=== PATIENT | female | born 1975 | race Caucasian/White ===

== ENCOUNTER 2020-03-24 21:38 | Observation (INO) | payer OTHER ==
[~2020-03-24] VITALS: Ht 175.3 cm; Wt 77.4 kg
[2020-03-24 22:07] LABS: BASOPHILS ABSOLUTE AUTO 0.08 K/mm3 (0.00-0.23); BASOPHILS PERCENT AUTO 1 % (0-2); EOSINOPHILS ABSOLUTE AUTO 0.11 K/mm3 (0.00-0.68); EOSINOPHILS PERCENT AUTO 2 % (0-6); Hemoglobin 15.4 g/dL (11.5-16.0); IMMATURE GRAN ABSOLUTE AUTO 0.02 K/mm3 (0.00-0.10); IMMATURE GRAN PERCENT AUTO 0 % (0-1); LYMPHOCYTES ABSOLUTE AUTO 3.36 K/mm3 (0.84-5.20); LYMPHOCYTES PERCENT AUTO 49 % (21-46); MONOCYTES PERCENT AUTO 6 % (4-13); Mean Corpuscular HGB 30.9 pg (26.0-34.0); Mean Corpuscular HGB Conc 32.8 g/dL (31.5-36.5); Mean Corpuscular Volume 94 fL (80-100); Mean Platelet Volume 9.6 fL (9.1-12.4); NEUTROPHILS ABSOLUTE AUTO 2.96 K/mm3 (1.96-9.15); NEUTROPHILS PERCENT AUTO 43 % (41-73); Platelet Count 293 K/mm3 (150-400); RDW Coefficient Variation 14.6 % (11.7-14.2); RDW Standard Deviation 50.4 fL (35.1-46.3); Red Blood Cell Count 4.99 M/mm3 (3.80-5.20); White Blood Cell Count 6.93 K/mm3 (4.00-11.30)
[2020-03-24 22:35] LABS: Alanine Aminotransfer (ALT/SGP 99 U/L (12-78); Albumin, Blood 3.7 g/dL (3.4-5.0); Alk Phos 71 U/L (50-136); Anion Gap 7 mmol/L (6-16); Aspartate Aminotrans (AST/SGOT 47 U/L (12-37); Bilirubin, Total 0.2 mg/dL (0.1-1.0); Blood Urea Nitrogen 9 mg/dL (8-24); Bun/Creatinine Ratio 14.9 (12.0-20.0); CO2, Blood 24 mmol/L (21-32); Calcium, Blood 8.2 mg/dL (8.5-10.1); Chloride, Blood 113 mmol/L (98-108); Ethanol (Alcohol), Blood, Med 278 mg/dL; Globulin, Blood 3.6 g/dL (2.2-4.0); Glomerular Filtration Rate >60 (60-); Glucose, Blood 90 mg/dL (70-99); Potassium, Blood 3.8 mmol/L (3.5-5.5); Salicylate 4.3 mg/dL (2.8-20.0); Sodium, Blood 144 mmol/L (136-145); Thyroxine (T4) 10.3 ug/dL (4.8-13.9); Total Protein, Blood 7.3 g/dL (6.4-8.2)
[2020-03-24 22:38] LABS: Acetaminophen, Random <2.0 ug/mL (10.0-30.0)
--- NOTE | 2020-03-25 01:00 | NUR ---
PT ARRIVED FROM ED VIA WC; SELF TRANSFERED TO BED; PT SEEMS DISGRUNTLED, STATING SHE DOES NOT WANT TO STAY IN THE HOSPITAL; A&O X4; DENIES CHEST PAIN; VSS; NSR ON MONITOR; O2 SATS >93 ON RA; ROOM MITIGATED AND SEIZURE PADS IN PLACE; 1:1 OBSERVATION.
--- NOTE | 2020-03-25 02:00 | NUR ---
SPOKE W/ POISON CONTROL ON PHONE, WHOM CALLED FOR PT UPDATE AND VERIFY LAB VALUES; PT CURRENTLY SLEEPING, NO DISTRESS NOTED
[2020-03-25 04:11] LABS: BASOPHILS ABSOLUTE AUTO 0.06 K/mm3 (0.00-0.23); BASOPHILS PERCENT AUTO 1 % (0-2); EOSINOPHILS ABSOLUTE AUTO 0.11 K/mm3 (0.00-0.68); EOSINOPHILS PERCENT AUTO 2 % (0-6); Hematocrit 40.7 % (33.0-51.0); Hemoglobin 13.2 g/dL (11.5-16.0); IMMATURE GRAN ABSOLUTE AUTO 0.02 K/mm3 (0.00-0.10); IMMATURE GRAN PERCENT AUTO 0 % (0-1); LYMPHOCYTES ABSOLUTE AUTO 3.21 K/mm3 (0.84-5.20); LYMPHOCYTES PERCENT AUTO 54 % (21-46); MONOCYTES ABSOLUTE AUTO 0.38 K/mm3 (0.16-1.47); MONOCYTES PERCENT AUTO 6 % (4-13); Mean Corpuscular HGB 30.8 pg (26.0-34.0); Mean Corpuscular HGB Conc 32.4 g/dL (31.5-36.5); Mean Corpuscular Volume 95 fL (80-100); Mean Platelet Volume 9.9 fL (9.1-12.4); NEUTROPHILS ABSOLUTE AUTO 2.21 K/mm3 (1.96-9.15); NEUTROPHILS PERCENT AUTO 37 % (41-73); Platelet Count 243 K/mm3 (150-400); RDW Coefficient Variation 14.8 % (11.7-14.2); RDW Standard Deviation 51.7 fL (35.1-46.3); Red Blood Cell Count 4.28 M/mm3 (3.80-5.20); White Blood Cell Count 5.99 K/mm3 (4.00-11.30)
[2020-03-25 04:29] LABS: Alanine Aminotransfer (ALT/SGP 81 U/L (12-78); Albumin, Blood 3.1 g/dL (3.4-5.0); Albumin/Globulin Ratio 1.1 (0.8-1.8); Alk Phos 60 U/L (50-136); Anion Gap 6 mmol/L (6-16); Aspartate Aminotrans (AST/SGOT 40 U/L (12-37); Bilirubin, Total 0.2 mg/dL (0.1-1.0); Blood Urea Nitrogen 9 mg/dL (8-24); Bun/Creatinine Ratio 15.9 (12.0-20.0); CO2, Blood 23 mmol/L (21-32); Calcium, Blood 7.4 mg/dL (8.5-10.1); Chloride, Blood 115 mmol/L (98-108); Creatinine, Blood 0.57 mg/dL (0.40-1.00); Globulin, Blood 2.9 g/dL (2.2-4.0); Glomerular Filtration Rate >60 (60-); Glucose, Blood 78 mg/dL (70-99); Potassium, Blood 3.7 mmol/L (3.5-5.5); Sodium, Blood 144 mmol/L (136-145)
[2020-03-25 04:33] LABS: Acetaminophen, Random 2.4 ug/mL (10.0-30.0); Salicylate 4.2 mg/dL (2.8-20.0)
--- NOTE | 2020-03-25 06:18 | NUR ---
SHIFT SUMMARY PT A&O X4; ANSWERS APPROPRIATELY; MAKES NEEDS KNOWN; DENIES CHEST PAIN, VSS, NSR ON MONITOR W/ HR 68; O2 SATS >93 ON RA; DENIES SOB; PT UP TO BATHROOM, NO GAIT DISTRUBANCES NOTED; NEURO CHECKS STABLE, NO ACUTE CHANGES; PUPILS EQUAL / REACTIVE; GRASPS EQUALLY STRONG; ARMS HELD EQUAL OUT IN FRONT, FLEXES FEET APPROPRIATELY AND FOLLOWS DIRECTIONS; UA SPECIMEN SENT TO LAB THIS AM; 1:1 OBSERVATION; PT REQUESTED TO CALL SPOUSE, THIS RN CALLED SPOUSE TO UPDATE AND TO NOTIFY OF VISITING HOURS; PT SLEPT SEVERAL HOURS; CURRENTLY BECOMING MORE AGGITATED SHE STATES SHE HAS A "VERY IMPORTANT MEETING THIS MORNING"; WILL CONTINUE TO MONITOR CLOSELY UNTIL HAND OFF TO DAY SHIFT RN.
[2020-03-25 06:39] LABS: Source, Urine Clean Catch
[2020-03-25 07:04] LABS: Bilirubin, Urine Neg (Neg); Blood, Urine 1+ (Neg); Glucose Qualitative, Urine Neg (Neg); Ketones, Urine 1+ (Neg); Leukocyte Esterase, Urine Neg (Neg); Nitrite, Urine Neg (Neg); Protein, Urine Neg (Neg); Specific Gravity, Urine 1.025 (1.003-1.022); Urobilinogen, Urine NORM (Normal)
[2020-03-25 07:22] LABS: U Amphetamine Screen Not Detected; U Barbituate Screen Not Detected; U Benzodiazapine Screen Not Detected; U Buprenorphine Screen Not Detected; U Cannabinoids Screen Not Detected; U Cocaine Screen Not Detected; U Methadone Screen Not Detected; U Methamphetamine Screen Not Detected; U Opiates Screen Not Detected; U Oxycodone Screen Not Detected; U Phencyclidine Screen Not Detected; U Propoxyphene Screen Not Detected
[2020-03-25 07:24] LABS: Appearance, Urine Hazy (Clear); Color, Urine Yellow (P-Yellow)
[2020-03-25 07:25] LABS: Bacteria Rare /hpf; Mucus Light (0-Heavy); Red Blood Cells, Urine 0-2 /hpf (0-2); Squamous Epithelial Cells Mod /hpf (Few); White Blood Cells, Urine Not Seen /hpf (0-5)
--- NOTE | 2020-03-25 07:57 | NUR ---
AM NOTE... ASSUMED CARE OF PT APROX 0700, PT IS A&Ox4 AND IND THE ROOM. PT IS ON 1:1 FOR ATTEMPTED SUICIDE WHILE DRINKING A 5TH OF FIRE BALL WHISKEY AND TAKING PILLS. PER PT SHE THREW UP THE PILLS APROX 20-30 AFTER TAKING THEM, HER UTOX SHOWED SHE WAS NEGATIVE FOR EVERYTHING. PT IS IN NSR WITH QTc OF .454, PT DENIES CHEST PAIN/PRESSURE. PT'S BP STABLE AT 147/76. PT IS ON RA, L/S CLEAR T/O. BT PRESENT AND HYPERACTIVE, PT HAS HAD AN EPISODE OF N/V WITH APROX 100MLS OF EMISIS. NO EDEMA NOTED ON ASSESSMENT. PT DENIES ANY CURRENT SI FEELINGS OR DESIRES. PT STATES THAT SHE REGRETS HER ATTEMPT AND "IT WAS STUPID AND I KNOW IT, I KNOW THE VALUE OF MY LIFE, IM JUST IN A BAD PLACE RIGHT NOW AND THE ALCOHOL DIDN'T HELP." PT IS REQUESTING "REGULAR FOOD" AT THIS TIME, CALLED PROVIDER AND OBTAINED ORDER FOR REGULAR DIET. WILL CONTINUE TO MONITOR.
--- NOTE | 2020-03-25 09:33 | NUR ---
PT UPDATE... PT IS BECOMING MORE ANXIOUS ABOUT LEAVING THAN SHE WAS AT THE START OF THIS SHIFT. PT KEEPS ASKING THIS RN AND OTHER STAFF ABOUT WHEN THE DOCTOR WILL BE HERE BECAUSE SHE HAS "STUFF TO DO AT HOME." PT ALSO ASKED IF SHE COULD TAKE OFF HER TELE MONITOR AND HER IV BECAUSE THEY WERE BUGGING HER. PT EDUCATED ON WHAT THE MONITOR AND IV WERE FOR AND SHE AGREED THAT SHE NEEDED THEM. PT CONTINUES TO DENY ANY THOUGHTS,IDEAS OR PLANS OF SELF HARM. WILL CONTINUE TO MONITOR.
--- NOTE | 2020-03-25 11:44 | NUR ---
Suicide Safety plan interview and plan completed at 10am today ICU15. present during interview. Pt alert, cooperative, well groomed and well spoken. 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 She self reports as unable to stop drinking hard liquor once she starts. She reports not sleeping for 10 days due to stress re: brief separation from and living separate;ly. She took the day off from work, and planned to drink, wanting to sleep. She purchased 2 bottles of Fireball and took pills to try and sleep. She induced vomiting herself, as she was not trying to kill herself. Pill fragments observed by EMS in ED physician notes. She called a friend to talk, and the friend called pt son who called EMS. She is future oriented and "a lot to live for". Pt has 16 y/o daughter and 19 y/o so that lives with them. She attended rehab at [facility] 5 years ago. She had rellapsed while going through a difficult divorce. Suicide attempt at age 17 by pill OD. She was medically hospitalized. Reports her brother had and was "shipped to live elsewhere" at the time. No further gestures or attempts. Pt has insight into her inability to control hard liquor once she starts. Explained involuntary process as she was concrned of meaning. Pt apologized, as she has a gag response when she becomes emotional,. She did have this response when discussing how she handles stress--which is work more. Recommend a counselor or her to explore alternate coping skills. Pt is not suicidal. Dir Ameya. BH
[2020-03-25] MEDS ORDERED: Nicoderm Cq1 EAC1 TOP (15:02)
--- NOTE | 2020-03-25 15:15 | NUR ---
PT D/C... PT D/C HOME WITH , PT SPOKE WITH MENTAL HEALTH PROVIDER AND THE 2MD HOLD WAS LIFTED. PT'S IV REMOVED WNL. ALL OF PT'S BELONGINGS WERE SENT HOME WITH HER . PT'S AT THE BEDSIDE FOR D/C INSTRUCTIONS/EDUCATION. PT'S ONLY NEW MEDICATION WAS NICOTINE PATCHES WHICH SHE REFUSED AND DID NOT WANT CALLED IN FOR HER. SAFETY PLAN WAS DONE AND IN THE CHART, PT AGREES TO FOLLOW IT. PT REFUSED W/C ESORT TO THE FRONT DOORS.
== END 2020-03-25 15:15 | disposition home or self-care (01) ==
LOC: ER 21:38 → ICUW 21:39
PROVIDERS: Emergency Medicine; Nurse Practitioner Acute Care; ADMIT Internal Medicine
DX: T43.212A Poisoning by selective serotonin and norepinephrine reuptake inhibitors, intentional self-harm, initial encounter (principal); T40.2X2A Poisoning by other opioids, intentional self-harm, initial encounter; F17.200 Nicotine dependence, unspecified, uncomplicated; F10.10 Alcohol abuse, uncomplicated; F10.129 Alcohol abuse with intoxication, unspecified; Y90.9 Presence of alcohol in blood, level not specified; Z71.6 Tobacco abuse counseling
CPT/HCPCS: 36415; 80053; 81001; 81025; 84436; 84443; 85025; 93005; 93010; 96360; 99285-25; G0378; G0480; J2405; J7030

== ENCOUNTER 2020-05-19 07:36 | Emergency (ER) | payer OTHER ==
[~2020-05-19] VITALS: Ht 177.8 cm; Wt 78.3 kg
[~2020-05-19 07:36] MED LIST: Nicoderm Cq1 EAC1 TOP
[2020-05-19 09:40] LABS: BASOPHILS ABSOLUTE AUTO 0.09 K/mm3 (0.00-0.23); BASOPHILS PERCENT AUTO 2 % (0-2); EOSINOPHILS ABSOLUTE AUTO 0.02 K/mm3 (0.00-0.68); EOSINOPHILS PERCENT AUTO 0 % (0-6); Hematocrit 45.1 % (33.0-51.0); Hemoglobin 14.8 g/dL (11.5-16.0); IMMATURE GRAN ABSOLUTE AUTO 0.02 K/mm3 (0.00-0.10); IMMATURE GRAN PERCENT AUTO 0 % (0-1); LYMPHOCYTES ABSOLUTE AUTO 1.78 K/mm3 (0.84-5.20); LYMPHOCYTES PERCENT AUTO 29 % (21-46); MONOCYTES ABSOLUTE AUTO 0.51 K/mm3 (0.16-1.47); MONOCYTES PERCENT AUTO 8 % (4-13); Mean Corpuscular HGB 30.3 pg (26.0-34.0); Mean Corpuscular HGB Conc 32.8 g/dL (31.5-36.5); Mean Corpuscular Volume 92 fL (80-100); Mean Platelet Volume 10.3 fL (9.1-12.4); NEUTROPHILS ABSOLUTE AUTO 3.65 K/mm3 (1.96-9.15); NEUTROPHILS PERCENT AUTO 60 % (41-73); Platelet Count 334 K/mm3 (150-400); RDW Coefficient Variation 14.4 % (11.7-14.2); RDW Standard Deviation 49.2 fL (35.1-46.3); Red Blood Cell Count 4.88 M/mm3 (3.80-5.20); White Blood Cell Count 6.07 K/mm3 (4.00-11.30)
[2020-05-19 10:00] LABS: Alanine Aminotransfer (ALT/SGP 39 U/L (12-78); Albumin, Blood 3.8 g/dL (3.4-5.0); Albumin/Globulin Ratio 1.1 (0.8-1.8); Alk Phos 84 U/L (50-136); Anion Gap 6 mmol/L (6-16); Aspartate Aminotrans (AST/SGOT 35 U/L (12-37); Bilirubin, Total 0.7 mg/dL (0.1-1.0); Blood Urea Nitrogen 10 mg/dL (8-24); Bun/Creatinine Ratio 17.8 (12.0-20.0); CO2, Blood 28 mmol/L (21-32); Calcium, Blood 9.1 mg/dL (8.5-10.1); Chloride, Blood 107 mmol/L (98-108); Creatinine, Blood 0.56 mg/dL (0.40-1.00); Globulin, Blood 3.5 g/dL (2.2-4.0); Glomerular Filtration Rate >60 (60-); Glucose, Blood 110 mg/dL (70-99); Potassium, Blood 3.7 mmol/L (3.5-5.5); Sodium, Blood 141 mmol/L (136-145); Total Protein, Blood 7.3 g/dL (6.4-8.2)
== END 2020-05-19 11:06 | disposition home or self-care (01) ==
LOC: ER 07:36
PROVIDERS: Physician Assistant
DX: N94.6 Dysmenorrhea, unspecified (principal); F17.200 Nicotine dependence, unspecified, uncomplicated; Z91.013 Allergy to seafood
CPT/HCPCS: 36415; 76830; 76856; 80053; 84703; 85025; 99284-25; J7030

== ENCOUNTER 2020-05-31 20:57 | Emergency (ER) | payer OTHER ==
[~2020-05-31] VITALS: Ht 180.3 cm; Wt 78.2 kg
[2020-05-31] MEDS ORDERED: MEDR10 PO (21:05)
[2020-05-31 21:32] LABS: BASOPHILS PERCENT AUTO 2 % (0-2); EOSINOPHILS ABSOLUTE AUTO 0.04 K/mm3 (0.00-0.68); EOSINOPHILS PERCENT AUTO 1 % (0-6); Hematocrit 44.8 % (33.0-51.0); Hemoglobin 14.7 g/dL (11.5-16.0); IMMATURE GRAN ABSOLUTE AUTO 0.02 K/mm3 (0.00-0.10); IMMATURE GRAN PERCENT AUTO 0 % (0-1); LYMPHOCYTES ABSOLUTE AUTO 2.97 K/mm3 (0.84-5.20); LYMPHOCYTES PERCENT AUTO 43 % (21-46); MONOCYTES ABSOLUTE AUTO 0.43 K/mm3 (0.16-1.47); MONOCYTES PERCENT AUTO 6 % (4-13); Mean Corpuscular HGB 30.4 pg (26.0-34.0); Mean Corpuscular HGB Conc 32.8 g/dL (31.5-36.5); Mean Corpuscular Volume 93 fL (80-100); Mean Platelet Volume 9.2 fL (9.1-12.4); NEUTROPHILS ABSOLUTE AUTO 3.31 K/mm3 (1.96-9.15); NEUTROPHILS PERCENT AUTO 48 % (41-73); Platelet Count 353 K/mm3 (150-400); RDW Coefficient Variation 14.5 % (11.7-14.2); RDW Standard Deviation 49.5 fL (35.1-46.3); Red Blood Cell Count 4.84 M/mm3 (3.80-5.20); White Blood Cell Count 6.87 K/mm3 (4.00-11.30)
[2020-05-31 21:49] LABS: Alanine Aminotransfer (ALT/SGP 46 U/L (12-78); Albumin, Blood 3.7 g/dL (3.4-5.0); Alk Phos 84 U/L (50-136); Anion Gap 8 mmol/L (6-16); Aspartate Aminotrans (AST/SGOT 57 U/L (12-37); Bilirubin, Total 0.3 mg/dL (0.1-1.0); Blood Urea Nitrogen 15 mg/dL (8-24); Bun/Creatinine Ratio 23.1 (12.0-20.0); CO2, Blood 24 mmol/L (21-32); Calcium, Blood 8.5 mg/dL (8.5-10.1); Chloride, Blood 109 mmol/L (98-108); Creatinine, Blood 0.65 mg/dL (0.40-1.00); Globulin, Blood 3.6 g/dL (2.2-4.0); Glomerular Filtration Rate >60 (60-); Glucose, Blood 107 mg/dL (70-99); Potassium, Blood 3.4 mmol/L (3.5-5.5); Sodium, Blood 141 mmol/L (136-145); Total Protein, Blood 7.3 g/dL (6.4-8.2)
[2020-06-01] MEDS ORDERED: CHLO25 PO (13:47)
[2020-06-01] MEDS ORDERED: ONDA4ODT MM (13:48)
[2020-06-01] MEDS ORDERED: Macrobid 100 M100 MG PO (18:50)
== END 2020-05-31 22:30 | disposition home or self-care (01) ==
LOC: ER 20:57
PROVIDERS: Physician Assistant
DX: F10.20 Alcohol dependence, uncomplicated (principal); F17.200 Nicotine dependence, unspecified, uncomplicated; Z91.013 Allergy to seafood; Z79.3 Long term (current) use of hormonal contraceptives
CPT/HCPCS: 36415; 80053; 83690; 85025; 96361; 96374; 99284-25; G0480; J2405; J7030

== ENCOUNTER 2020-06-01 09:44 | Emergency (ER) | payer OTHER ==
[~2020-06-01] VITALS: Ht 177.8 cm; Wt 78.9 kg
[~2020-06-01 09:44] MED LIST changes: +MEDR10 PO
[2020-06-01 12:19] LABS: BASOPHILS ABSOLUTE AUTO 0.09 K/mm3 (0.00-0.23); BASOPHILS PERCENT AUTO 1 % (0-2); EOSINOPHILS ABSOLUTE AUTO 0.04 K/mm3 (0.00-0.68); EOSINOPHILS PERCENT AUTO 1 % (0-6); Hemoglobin 13.9 g/dL (11.5-16.0); IMMATURE GRAN ABSOLUTE AUTO 0.02 K/mm3 (0.00-0.10); IMMATURE GRAN PERCENT AUTO 0 % (0-1); LYMPHOCYTES ABSOLUTE AUTO 2.09 K/mm3 (0.84-5.20); LYMPHOCYTES PERCENT AUTO 26 % (21-46); MONOCYTES ABSOLUTE AUTO 0.65 K/mm3 (0.16-1.47); MONOCYTES PERCENT AUTO 8 % (4-13); Mean Corpuscular HGB 30.9 pg (26.0-34.0); Mean Corpuscular HGB Conc 33.1 g/dL (31.5-36.5); Mean Corpuscular Volume 93 fL (80-100); Mean Platelet Volume 9.8 fL (9.1-12.4); NEUTROPHILS ABSOLUTE AUTO 5.21 K/mm3 (1.96-9.15); NEUTROPHILS PERCENT AUTO 64 % (41-73); Platelet Count 322 K/mm3 (150-400); RDW Coefficient Variation 14.4 % (11.7-14.2); RDW Standard Deviation 49.3 fL (35.1-46.3)
[2020-06-01 12:26] LABS: Alanine Aminotransfer (ALT/SGP 46 U/L (12-78); Albumin, Blood 3.7 g/dL (3.4-5.0); Albumin/Globulin Ratio 1.1 (0.8-1.8); Alk Phos 87 U/L (50-136); Anion Gap 8 mmol/L (6-16); Aspartate Aminotrans (AST/SGOT 47 U/L (12-37); Blood Urea Nitrogen 11 mg/dL (8-24); Bun/Creatinine Ratio 19.4 (12.0-20.0); CO2, Blood 24 mmol/L (21-32); Calcium, Blood 8.5 mg/dL (8.5-10.1); Chloride, Blood 106 mmol/L (98-108); Creatinine, Blood 0.57 mg/dL (0.40-1.00); Globulin, Blood 3.3 g/dL (2.2-4.0); Glomerular Filtration Rate >60 (60-); Glucose, Blood 97 mg/dL (70-99); Magnesium, Blood 1.8 mg/dL (1.6-2.4); Potassium, Blood 3.4 mmol/L (3.5-5.5); Sodium, Blood 138 mmol/L (136-145); Troponin I <0.015 ng/mL (0.000-0.040)
[2020-06-01] MEDS ORDERED: CHLO25 PO (13:47)
[2020-06-01] MEDS ORDERED: ONDA4ODT MM (13:48)
[2020-06-01 14:17] LABS: Source, Urine Clean Catch
[2020-06-01 14:23] LABS: Appearance, Urine Hazy (Clear); Blood, Urine 3+ (Neg); Color, Urine Yellow (P-Yellow); Glucose Qualitative, Urine Neg (Neg); Ketones, Urine 3+ (Neg); Leukocyte Esterase, Urine 3+ (Neg); Nitrite, Urine Pos (Neg); Protein, Urine 2+ (Neg); Urobilinogen, Urine 2+ (Normal)
[2020-06-01 14:37] LABS: Bilirubin, Urine 1+ (Neg)
[2020-06-01 14:38] LABS: Bacteria Few /hpf; Mucus Heavy (0-Heavy); Red Blood Cells, Urine Not Seen /hpf (0-2); Squamous Epithelial Cells Many /hpf (Few)
[2020-06-01] MEDS ORDERED: Macrobid 100 M100 MG PO (18:50)
== END 2020-06-01 14:23 | disposition home or self-care (01) ==
LOC: ER 09:44
PROVIDERS: Emergency Medicine
DX: N39.0 Urinary tract infection, site not specified (principal); F10.10 Alcohol abuse, uncomplicated; E86.0 Dehydration; E87.6 Hypokalemia; F17.210 Nicotine dependence, cigarettes, uncomplicated; Z79.3 Long term (current) use of hormonal contraceptives; Z91.013 Allergy to seafood
CPT/HCPCS: 36415; 71045; 80053; 81001; 83690; 83735; 84484; 85025; 87086; 93005; 93010; 96374; 96375; 99284-25; A9270; A9270-GY; J2405; J7120